=== PATIENT | female | born 1990 | race Caucasian/White ===

== ENCOUNTER 2025-05-24 14:48 | Emergency (ER) | payer OTHER, SELFPAY ==
[2025-05-24 14:55] VITALS: BP 118/81
[2025-05-24 15:16] LABS: Hematocrit 43.6 % (37.0-47.0); Hemoglobin 14.4 g/dL (12.0-16.0); Mean Corp Hgb Conc. 33.0 g/dL (33.0-37.0); Mean Corpuscular Volume 89.7 fL (81.0-99.0); Nucleated Red Blood Cells % 0 %; Platelet Count 369 10^3/uL (130-400); Red Cell Dist. Width 12.4 % (11.5-14.5)
[2025-05-24 15:36] LABS: ALT (SGPT) 13 U/L (0-35); AST (SGOT) 20 U/L (14-36); Albumin 5.0 g/dl (3.5-5.0); Alkaline Phosphatase 41 U/L (38-126); Blood Urea Nitrogen 12 mg/dl (7-17); Calcium 9.8 mg/dl (8.4-10.2); Carbon Dioxide 29 mmol/L (22-30); Chloride 102 mmol/L (98-107); Glucose 89 mg/dl (70-99); Potassium 4.4 mmol/L (3.5-5.1); Sodium 138 mmol/L (135-145); Total Protein 8.0 g/dl (6.3-8.2); eGFR > 60.00
[2025-05-24 15:49] LABS: Beta HCG Quantitative 2.84 mIU/ml
[2025-05-24 17:58] VITALS: BP 115/78
[2025-05-24 17:59] VITALS: BMI 24.2
[2025-05-24 18:00] VITALS: BP 116/79
[2025-05-24 19:36] VITALS: BP 122/59
--- NOTE | 2025-05-24 22:30 | ED.GENMED ---
History of Present Illness
General
Chief Complaint: Problems
Source: patient
Exam Limitations: none
Time Seen by Provider: 05/24/25 17:41
Nursing documentation reviewed up to this point in time: agreed with
History of Present Illness
History of Present Illness:
Patient to the emergency department for suspected miscarriage. She reports that she is approximately 5 weeks . She developed light spotting last night. Reports waking this morning with a large amount of vaginal bleeding and pelvic
cramping. She came to the emergency department for evaluation..
Past History
Past History
ED Past Medical History: None
Review of Systems
Review of Systems
Allergies reviewed?: Yes
All Other Systems: ROS reviewed and negative except as documented in HPI and ROS
Constitutional: Reports no symptoms
EENT: Reports no symptoms
Respiratory: Reports no symptoms
Cardiac: Reports no symptoms
ABD/GI: Reports no symptoms
: Reports bleeding (Heavy vaginal bleeding and pelvic cramping this a.m.)
Musculoskeletal: Reports no symptoms
Skin: Reports no symptoms
Neurological: Reports no symptoms
Psychiatric: Reports no symptoms
Phy Exam
General Physical Exam
General Presentation: well appearing and no apparent distress
General age: appears stated age
General Skin: warm and dry
General Habitus: normal
General Mental: alert
Cardiovascular Exam
Cardiovascular Exam: regular rate/rhythm
Gastrointestinal Exam
Gastrointestinal Exam: normal bowel sounds, non tender, soft, no organomegaly, non distended and no cva tenderness
Genitourinary Exam Female
Exam Female: other (Pelvic exam deferred per transvaginal ultrasound.)
Musculoskeletal Exam
Musculoskeletal Exam: full ROM and neuro vasc intact
Skin Exam
Skin Exam: normal color, warm/dry and no rash
Psychiatric Exam
Psychiatric Exam: normal mood/affect
Course
Orders/Labs/Results
Orders:
Orders
05/24/25 15:05
Complete Blood Count/With Diff Urgent
Comprehensive Metabolic Panel Urgent
HCG, Beta Quantitative [Beta HCG Quantitative] Urgent
Is this a screen?: No
05/24/25 17:55
US Pelvis W Transvag Combined Urgent
Reason For Exam: bleeding, cramping (5 weeks)
05/24/25 15:05
05/24/25 15:05
Vital Signs
Initial and Last Documented VS:
Initial Vital Signs
Pulse Resp BP Pulse Ox
73 18 118/81 100
05/24/25 14:55 05/24/25 14:55 05/24/25 14:55 05/24/25 14:55
Last Documented Vital Signs
Pulse Resp BP Pulse Ox
73 18 122/59 100
05/24/25 14:55 05/24/25 14:55 05/24/25 19:36 05/24/25 19:36
Information
Weeks gestation: N/A
Location: N/A
*Radiology
Radiology exam reviewed: radiology read reviewed
*Pulse Oximetry
SaO2: 100
Oxygen Mode of Delivery: Room air
Patient hypoxic: no
*Critical Care Note
Total Time (30-74mins, 75-104mins- exclusive of procedures): Not Applicable
Update Note
Update Note:
Patient to the emergency department for evaluation of heavy vaginal bleeding and pelvic cramping this morning. She developed spotting last p.m. without pain. On arrival to ED her vital signs are stable and she remains afebrile. CBC and CMP are
unremarkable. Beta hCG 2.84 she reports she is approximately 5 weeks . Transvaginal ultrasound was performed. No intrauterine was identified no evidence of retained products of conception. There is a benign corpus luteum cyst
of the left ovary. Suspect complete miscarriage. Discussed these findings with her. She will be discharged home tonight. Vaginal bleeding has diminished. She will follow-up with her OB in the a.m. she was given instructions on signs and
symptoms to return to the emergency department and she is agreeable with this plan.
ED Attending Note
-
Portions of this chart may have been created with voice recognition software.� Occasional wrong word or��sound alike� substitutions may have occurred due to the inherent limitations of voice recognition software.
Discharge Plan
Departure
Patient Disposition: Home (Routine Discharge)
Date of Disposition: 05/24/25
Time of Disposition: 20:26
Patient with high blood pressure during this ER visit?: No
Condition: Good
Covid-19: Not Applicable
Discharge Problem:
Miscarriage
Instructions: Miscarriage (DC)
Prescriptions:
No Action
prenat.vits,mariia,[id number]-[id number] Tablet
1 tab PO Daily
docosahexaenoic acid 200 mg Capsule
1 mg PO Daily
sennosides-docusate sodium [Senna Plus] 8.6-50 mg Tablet
1 tab PO DAILYPRN PRN (Reason: constipation) Qty: 30 0RF
oxycodone-acetaminophen 5-325 mg Tablet
1 tab PO Q4HPRN PRN (Reason: moderate pain) Qty: 10 0RF
ibuprofen 600 mg Tablet
600 mg PO Q6HPRN PRN (Reason: cramps) Qty: 20 0RF
acetaminophen 325 mg Tablet
650 mg PO Q4HPRN PRN (Reason: mild pain) Qty: 20 0RF
Referrals:
Soledad Avila DO [Family Provider, Family Practice]
Activity Restrictions/Additional Instructions:
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 Return to the emergency department immediately for increasing pain, increasing bleeding, weakness, fever/chills, or for any further concerns.
Interventions
Interventions:
*Risk Screen - Suicide Last Done: 05/24/25 14:55
*General Assessment Last Done: 05/24/25 17:59
*Neglect/Abuse Screening Last Done: 05/24/25 17:59
*ED- Fall Risk Assessment Last Done: 05/24/25 17:59
*ED COVID-19 Vaccine History Last Done: 05/24/25 17:59
*ED Influenza Vaccine History Last Done: 05/24/25 17:59
*Nursing Disposition Last Done: 05/24/25 20:44
ED-Female Genitourinary Assessment Last Done: 05/24/25 17:59
Discharge Date and Time
Discharge Date/Time: 05/24/25 20:51
Print Language: [id number]
== END 2025-05-24 20:51 | disposition home or self-care (01) ==
LOC: EMR 14:48
PROVIDERS: EMERGENCY PHYSICIAN Emergency Medicine; FAMILY PHYSICIAN Family Medicine
DX: O03.9 Complete or unspecified spontaneous abortion without complication (principal); Z3A.01 Less than 8 weeks gestation of pregnancy
CPT/HCPCS: 99284; 76830; 76856; 80053; 84702; 85025